=== PATIENT | female | born 1970 | race Hispanic/Latino ===

== ENCOUNTER 2018-02-19 09:13 | Emergency (ER) | payer MEDICAID, OTHER ==
[2018-02-19 09:13] VITALS: BMI 27.4
--- NOTE | 2018-02-19 09:37 | ED PDOC ---
Arrival/HPI - General Historian: Patient - History of Present Illness Narrative History of Present Illness (Text): 02/19/18 09:38 47-year-old female presents today with rash to the forehead and arms bilaterally. Patient states she was pulling weeds and the next day woke up with itchy rash to the forearms as well as redness and pruritus and burning to the forehead. Patient denies chest pain or shortness of breath. Patient denies fevers or chills. Patient denies blurred vision. Patient denies difficulty breathing or swallowing. She denies pruritus in the throat. Patient denies any other complaints. No medications were taken at home. Time/Duration: Other (this am) Symptom Onset: Sudden Symptom Course: Unchanged Quality: Burning (Itchy) Severity Level: Mild <Paris Thurston - Last Filed: 02/19/18 14:25> <Severiano Corado - Last Filed: 02/19/18 16:53> - General Chief Complaint: Allergic Reaction Time Seen by Provider: 02/19/18 09:32 Past Medical History - Provider Review Nursing Documentation Reviewed: Yes - Travel History Have you recently traveled outside [place] w/in the past 3 mons?: No - Infectious Disease Hx of Infectious Diseases: None - Tetanus Immunization Tetanus Immunization: Unknown - Reproductive Menopause: No - Cardiac Hx Cardiac Disorders: No - Neurological Hx Headaches: Yes - Psychiatric Hx Depression: No Hx Emotional Abuse: No Hx Physical Abuse: No Hx Substance Use: No - Past Surgical History Past Surgical History: No Previous - Anesthesia Hx Anesthesia: No - Suicidal Assessment Feels Threatened In Home Enviroment: No <Paris Thurston - Last Filed: 02/19/18 14:25> Family/Social History - Physician Review Nursing Documentation Reviewed: Yes Family/Social History: Unknown Family HX Smoking Status: Current Some Days Smoker Hx Alcohol Use: No Hx Substance Use: No Hx Substance Use Treatment: No <Paris Thurston - Last Filed: 02/19/18 14:25> Allergies/Home Meds <Paris Thurston - Last Filed: 02/19/18 14:25> <Severiano Corado - Last Filed: 02/19/18 16:53> Allergies/Adverse Reactions: Allergies No Known Allergies Allergy (Verified 07/29/14 15:10) Review of Systems - Review of Systems Constitutional: absent: Fatigue, Fevers Eyes: absent: Vision Changes, Photophobia, Eye Pain ENT: absent: Sore Throat, Sinus Congestion Respiratory: absent: SOB, Cough Cardiovascular: absent: Chest Pain, Palpitations Gastrointestinal: absent: Abdominal Pain, Nausea, Vomiting Genitourinary Female: absent: Dysuria Musculoskeletal: absent: Arthralgias Skin: Rash, Pruritis Neurological: absent: Headache, Dizziness Psychiatric: absent: Anxiety, Depression <Paris Thurston - Last Filed: 02/19/18 14:25> Physical Exam Vital Signs Reviewed: Yes Temperature: Afebrile Blood Pressure: Normal Pulse: Regular Respiratory Rate: Normal Appearance: Positive for: Well-Appearing, Non-Toxic, Comfortable Pain Distress: None Mental Status: Positive for: Alert and Oriented X 3 - Systems Exam Head: Present: Atraumatic, Swelling, Other (there is erythema and swelling to the forehead with multiple pinpoint vesicles noted to the right and left sides of the forehead. non tender. ) Pupils: Present: PERRL Extroacular Muscles: Present: EOMI Conjunctiva: Present: Normal Ears: Present: Normal, NORMAL TM, Other (no erythema. no vesicles noted.). No: Erythema Mouth: Present: Moist Mucous Membranes Pharnyx: Present: Normal. No: ERYTHEMA, EXUDATE, Peritonsilar Swelling, Uvular Deviation Neck: Present: Normal Range of Motion, Trachea Midline Respiratory/Chest: Present: Clear to Auscultation, Good Air Exchange. No: Respiratory Distress, Accessory Muscle Use Cardiovascular: Present: Regular Rate and Rhythm, Normal S1, S2. No: Murmurs Upper Extremity: Present: Other (there are multiple areas of erythema with pinpoint vesicles noted to volar aspects of forearms bilaterally. non tender. full rom. ). No: Normal Inspection, Tenderness, Swelling Neurological: Present: GCS=15, Speech Normal Skin: Present: Warm, Dry, Normal Color Psychiatric: Present: Alert, Oriented x 3 <Paris Thurston - Last Filed: 02/19/18 14:25> Vital Signs Temp Pulse Resp BP Pulse Ox 02/19/18 10:15 98.9 F 78 18 122/72 97 02/19/18 09:38 99.2 F 72 16 126/87 97 <Severiano Corado - Last Filed: 02/19/18 16:53> Medical Decision Making ED Course and Treatment: 02/19/18 09:36 Patient is nontoxic well-appearing in no distress with stable vital signs no angioedema. pt with erythema and pinpoint vesicles noted to right and left sides of forehead and volar aspect of both arms Lungs are clear to auscultation bilaterally there is no wheezing noted. The airway is patent benadryl prednisone pepcid pt most likely with contact dermatitis from pulling weeds yesterday. I advised taking Benadryl every 6 hours as needed for itch, as well as prednisone daily x4 days. pt advised to apply calamine lotion. Advised patient to follow up with primary care physician within the next 2 days and return if symptoms worsen persist or if new symptoms develop Patient verbalizes understanding of discharge instructions and need for immediate followup. Impression :Allergic reaction, contact dermatitis Benadryl every 6 hours as needed for itch Prednisone once daily x4 days Pepcid one tablet daily Apply Calamine lotion to affected areas as directed. Follow up with the primary care physician tomorrow Follow up with the instrument repair technician. Return if symptoms worsen persist or if new symptoms develop: Shortness of breath, feeling of throat closing, difficulty speaking or any other concerning symptoms develop - Medication Orders Current Medication Orders: Diphenhydramine HCl (Benadryl) 25 mg PO ONCE ONE Stop: 02/19/18 09:33 <Paris Thurston T - Last Filed: 02/19/18 14:25> ED Course and Treatment: 02/19/18 16:53 The documented history was done by the physician production inspector. The documented physical exam was done by the physician production inspector. The documented procedures were done by the physician production inspector. I was available for consultation during the PA/STRUCTURAL ENGINEERING TECHNICIAN evaluation. The chart was reviewed by me, and I agree with the management and plan except what is documented in my notes. - Medication Orders Current Medication Orders: Discontinued Medications Diphenhydramine HCl (Benadryl) 25 mg PO ONCE ONE Stop: 02/19/18 09:33 Last Admin: 02/19/18 10:01 Dose: 25 mg Famotidine (Pepcid) 20 mg PO STAT STA Stop: 02/19/18 09:33 Last Admin: 02/19/18 10:01 Dose: 20 mg Prednisone (Prednisone Tab) 60 mg PO STAT ONE Stop: 02/19/18 09:33 Last Admin: 02/19/18 10:01 Dose: 60 mg <Severiano Corado - Last Filed: 02/19/18 16:53> Disposition/Present on Arrival - Present on Arrival Any Indicators Present on Arrival: No History of DVT/PE: No History of Uncontrolled Diabetes: No Urinary Catheter: No History of Decub. Ulcer: No History Surgical Site Infection Following: None - Disposition Have Diagnosis and Disposition been Completed?: Yes Disposition Time: 09:34 Patient Plan: Discharge <Paris Thurston Yulissa - Last Filed: 02/19/18 14:25> <Severiano Corado - Last Filed: 02/19/18 16:53> - Disposition Diagnosis: Allergic reaction, Contact dermatitis Disposition: HOME/ ROUTINE Condition: GOOD Discharge Instructions (ExitCare): Contact Dermatitis (DC) Additional Instructions: Benadryl every 6 hours as needed for itch Prednisone once daily x4 days Pepcid one tablet daily Apply Calamine lotion to affected areas as directed. Follow up with the primary care physician tomorrow Follow up with the instrument repair technician. Return if symptoms worsen persist or if new symptoms develop: Shortness of breath, feeling of throat closing, difficulty speaking or any other concerning symptoms develop Prescriptions: DiphenhydrAMINE [Benadryl] 25 mg PO Q6H #20 cap Famotidine [Pepcid] 20 mg PO DAILY #30 tab RX: predniSONE [predniSONE Tab] 3 tab PO DAILY #12 tab Referrals: Jamarcus Munoz MD [Staff Provider] - Follow up with primary Kyleigh Bush MD [Medical Doctor] - Follow up with primary [employer] [Outside] - Follow up with primary Forms: [employer] ([place]), WORK NOTE
[2018-02-19 09:39] VITALS: O2SAT 97
[2018-02-19 13:01] VITALS: BP 122/72; PULSE 78; RESP 18; TEMP 98.9
== END 2018-02-19 10:15 | disposition home or self-care (01) ==
LOC: ED 09:13
DX: L25.9 Unspecified contact dermatitis, unspecified cause (principal); T78.40XA Allergy, unspecified, initial encounter; X58.XXXA Exposure to other specified factors, initial encounter